=== PATIENT | female | born 1990 | race Caucasian/White ===

== ENCOUNTER 2024-02-06 15:10 | Emergency (ER) | payer OTHER, BC ==
[~2024-02-06] VITALS: Ht 177.8 cm; Wt 81.1 kg
[2024-02-06 15:50] LABS: BASOPHILS 0.6 % (0-2); EOSINOPHILS 1.1 % (0-6); HEMATOCRIT 42.3 % (35.0-50.0); HEMOGLOBIN 14.2 g/dL (12.0-18.0); MCH 31.3 (27-36); MCHC 33.5 g/dl (30-36); MCV 93.3 fl (81-99); MONOCYTES 5.7 % (0-12); NEUTROPHILS 71.6 % (39-80); PLATELET COUNT 215 K/uL (140-440); RBC 4.54 M/ul (4.3-5.7); RDW 13.1 (10.5-15.0)
[2024-02-06 16:12] LABS: ABO O; RH POSITIVE
[2024-02-06 16:28] LABS: ANION GAP 12.7 (7-21); BUN/CREATININE RATIO 15.27 (6.0-28.6); CALCIUM 8.8 mg/dL (8.5-10.1); CREATININE, SERUM 0.72 mg/dL (0.55-1.02); POTASSIUM 3.7 mmol/L (3.5-5.1)
[2024-02-06] MEDS ORDERED: HYDROCODON-ACE1 EA10 PO (18:07)
[2024-02-06] MEDS ORDERED: CYTOTEC200 MCG BUCCAL (18:07)
[2024-02-06] MEDS ORDERED: miSOPROStoL 200 MCG TAB PO ONE (18:15)
[2024-02-06] MEDS ORDERED: HYDROCODONE/ACETA 5/325 TAB PO ONE (18:15)
[2024-02-06 18:27] VITALS: BP 131/75
== END 2024-02-06 18:27 | disposition home or self-care (01) ==
LOC: ED 15:10
PROVIDERS: Emergency Medicine
DX: O03.9 Complete or unspecified spontaneous abortion without complication (principal)
CPT/HCPCS: 36415; 76801; 76817; 80048; 84702; 85025; 86900; 86901; 99284-25